=== PATIENT | female | born 1980 | race Caucasian/White ===

== ENCOUNTER 2022-12-27 13:43 | Outpatient (CLI) | payer OTHER, SELFPAY ==
--- NOTE | 2022-12-27 14:00 | CRLHL7_ITS ---
For Patients: As a result of the Century Cures Act, medical imaging exams and procedure reports are released immediately into your electronic medical record. You may view this report before your referring provider. If you have questions, please contact your health care provider. INDICATION: Trauma. Fall. Right buttock hematoma reportedly. TECHNIQUE: Directed soft tissue ultrasound of the upper right buttock without a radiologist present. FINDINGS: There is a fairly well-circumscribed slightly lobulated hypoechoic nonvascular mass in the upper right buttock measuring 8.9 x 2.1 x 4.9 cm. This appears to reflect a complex fluid collection and given the history provided, this should reflect a hematoma/seroma in the proper clinical setting. This is likely within the subcutaneous soft tissues as opposed to intra muscular in nature. IMPRESSION : Complex nonvascular oval-shaped fluid collection within the superficial soft tissues of the upper right buttock up measuring 8.9 x 2.1 x 4.9 cm likely a hematoma. Dictated by Giancarlo Melton MD @ 12/27/2022 6:04:53 PM (Electronically Signed)
== END 2022-12-27 13:44 | disposition home or self-care (01) ==
LOC: US 13:44
PROVIDERS: Visit Provider Physician Assistant Medical
DX: T14.8XXA Other injury of unspecified body region, initial encounter (principal)
CPT/HCPCS: 76882

== ENCOUNTER 2023-08-04 11:34 | Outpatient (CLI) | payer OTHER, SELFPAY | END 2023-08-04 11:35 | disposition home or self-care (01) | PROVIDERS: PCP Emergency Medicine; Visit Provider Family Medicine | DX: L65.9 Nonscarring hair loss, unspecified (principal); R53.83 Other fatigue | CPT/HCPCS: 80053; 84443 ==

== ENCOUNTER 2024-01-02 08:47 | Emergency (ER) | payer OTHER, SELFPAY ==
[2024-01-02 08:56] VITALS: BP 149/106; PULSE 124; RESP 18; TEMP 36.9; O2SAT 97; BMI 36.0
--- NOTE | 2024-01-02 09:12 | ED_ITS ---
HPI - Chest Pain General Date Seen: 01/02/24 Chief Complaint: Hypertension Stated Complaint: elevated blood pressure Time Seen by Provider: 01/02/24 09:04 History of Present Illness HPI narrative: 43-year-old female with a history of shingles, anxiety, insomnia, fatigue, presenting to the ER today for symptoms including headache, palpitations. She has a history of intermittent fevers for several months and has been following with Infectious Disease. Had a fever up to 104 last night. She checked her blood pressure today at work and it was apparently 180 systolic. Her resting heart rate is elevated up to 140. Normally is in the 70s. She has been running fevers for about a year or so. She has had a workup through her primary care and then has been referred to an Infectious Disease doctor at [facility]. She is says she has had multiple lab tests, echocardiogram, and other testing scans including a CT scan without any clear explanation for her fever. Her infectious disease team and [facility] wanted to refer her to [facility] for further evaluation. However her insurance block to that referral and would only allow her to get a 2nd opinion through [facility]. She recently saw a new infectious disease doctor, Dr. Heladio Tirado through [facility]. For the past few days she has been running fevers again. She had a temp up to 104 last night. She has been having headaches and body aches with the fevers which can happen and have been happening for the past year. Also she notes that for the past few days her resting heart rate has been high. Last night was up to 140 while she was in bed and normally it runs around 70. 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 Her heart rate was elevated. Her dentist checked her blood pressure and said that it was elevated at 180 systolic. Also her dentist said that there was a ?whoosh? in her heart so she sent her to the ER. She did have a sore throat a couple of nights ago. She has had ongoing headaches for the past couple of days. No confusion. No stiff neck. No other new symptoms. No cough. No vomiting. No diarrhea. No rash. No urinary symptoms. She is not currently on antibiotics. No known history of autoimmune disease. 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 (ICD-10) History of vitamin D deficiency ?Z86.39 - Personal history of other endocrine, nutritional and metabolic disease (ICD-10) Subclinical hyperthyroidism ?E05.90 - Thyrotoxicosis, unspecified without thyrotoxic crisis or storm (ICD-10) Hemorrhagic cyst of left ovary ?N83.202 - Unspecified ovarian cyst, left side (ICD-10) Surgical History (Updated 08/04/23 @ 11:29 by Norma Moreno MD) Hx of section ?Z98.891 - History of uterine scar from previous surgery (ICD-10) Hx of hysterectomy ?Z90.710 - Acquired absence of both cervix and uterus (ICD-10) Hx of appendectomy ?Z90.49 - Acquired absence of other specified parts of digestive tract (ICD- 10) Family History Heart failure Maternal Grandmother Alzheimers disease Mother Maternal Grandmother Hyperlipidemia Father Paternal Grandmother Myocardial infarction Maternal Grandfather High blood pressure Father Paternal Grandmother Colonic polyp Father Social History Narrative: Patient works at a dental office. Smoking Status: Never smoker Little interest or pleasure in doing things: not at all Feeling down, depressed, or hopeless: not at all Exam Narrative Exam Narrative: Constitutional: Appears well-developed and well-nourished. Alert. Conversant. Non toxic. HENT: Head: Atraumatic. Nose: Nose normal. Mastoids and pinna normal. TMs normal Mouth/Throat: Oral mucosa is clear and moist. no trismus. Pharynx mildly erythema. Tonsils symmetric. No tonsillar enlargement, erythema, or exudate. Uvula midline. Phonation normal Eyes: Conjunctivae normal. EOM normal. Pupils equal, round, and reactive to light. No scleral icterus. Neck: Normal range of motion. Neck supple. No tracheal deviation present. Cardiovascular: Tachycardic, 110, regular rhythm. No gallop. No friction rub. Possible splitting of S2 verses very soft systolic murmur heard. Symmetric radial artery pulses Pulmonary/Chest: Effort normal. No stridor. No respiratory distress. No wheezes. No rales. No rhonchi . No tenderness. Abdominal: Soft. Bowel sounds normal. No distension. No mass. No tenderness. No HSM. No rebound. No guarding. Musculoskeletal: RUE: Normal range of motion. No tenderness. No deformity LUE: Normal range of motion. No tenderness. No deformity RLE: Normal range of motion. No edema. No tenderness. No deformity LLE: Normal range of motion. No edema. No tenderness. No deformity Lymph: No cervical adenopathy. Neurological: Alert and oriented to person, place, and time. Normal strength. CN II-VII intact. No sensory deficit. GCS eye subscore is 4. GCS verbal subscore is 5. GCS motor subscore is 6. Normal coordination Skin: Skin is warm and dry. No rash noted. No pallor. Normal capillary refill. Psychiatric: Normal mood. Normal affect. Const Vital Signs, click to edit/add: Vital Signs - 24 hr 01/02/24 08:56 Temperature 98.4 F Pulse Rate [Pulse Oximeter] 124 H Respiratory Rate 18 Blood Pressure [Right Upper Arm] 149/106 H Pulse Oximetry 97 Oxygen Delivery Method Room Air Course Vital Signs Vital signs: Initial Vital Signs Respiratory Effort Normal 01/02/24 08:52 Respiratory Depth Normal 01/02/24 08:52 Respiratory Pattern Normal 01/02/24 08:52 Vital Signs Temperature 98.4 F 01/02/24 08:56 Pulse Rate 124 H 01/02/24 08:56 Respiratory Rate 18 01/02/24 08:56 Blood Pressure 149/106 H 01/02/24 08:56 Pulse Oximetry 97 01/02/24 08:56 Oxygen Delivery Method Room Air 01/02/24 08:56 Temperature 98.4 F 01/02/24 08:56 Pulse Rate 124 H 01/02/24 08:56 Respiratory Rate 18 01/02/24 08:56 Blood Pressure 149/106 H 01/02/24 08:56 Pulse Oximetry 97 03/05/24 08:56 Oxygen Delivery Method Room Air 01/02/24 08:56 Medications Administered Medications: Discontinued Medications Generic Name Dose Route Start Last Admin Trade Name Angelica PRN Reason Stop Dose Admin Ibuprofen 600 mg 01/02/24 11:30 01/02/24 11:29 Ibuprofen 200 Mg Tablet PO 01/02/24 11:31 600 mg ONCE ONE Administration MDM - Chest Pain MDM Narrative Medical decision making narrative: Child presents for evaluation of fever as well as elevated heart rate and elevated blood pressure. She has had trouble with intermittent fevers off and on for the past year and is part way through the process of a complex infectious disease workup determine the cause for her chronic fever. In that setting though she seems to have a new illness with an elevated resting heart rate and fevers that began this weekend. Differential is broad. Clinically I suspect that this probably a new illness superimposed post above her chronic problem. No classic rash to suggest viral syndrome. No evidence for OM on exam. She did have a sore throat a couple of days ago. Strep and mono are negative. No signs of exudate of pharyngitis or [employer] or RPA at this time. Differential for fever included cellulitis, septic arthritis, osteomyelitis but these are not seen on exam. She has had a previous echo that did not show any sign of endocarditis. On my exam she does have a possible heart murmur or possibly just a split S2. Recommend she follow-up with her new infectious disease team through [facility] and consider TTE. I made an effort to get through to the [facility] infectious disease doctor through the [facility] transfer line. Unfortunately they were not able to return my consult request today. Lungs are clear , so doubt pneumonia. She does have URI symptoms and headache and body aches with her fever. She is positive for influenza A based on nasal PCR. Negative for COVID and RSV. Based on time since onset of her new illness, currently on day 4, she is unlikely to benefit from Tamiflu. Discussed Tamiflu with the patient and she agrees to hold off for now. Abdominal exam is benign, appendicitis/colitis/ intra-abdominal source for fever is unlikely. The patient is smiling, alert, sitting up, and non-toxic, so I do not think sepsis or meningitis is present. Her infectious disease doctors have been considering possible lumbar puncture as part of workup for her chronic fever. At this point would hold off on LP in the ER today given low risk for acute bacterial meningitis. Plan of care includes supportive care with antipyretics, fluids, and watchful waiting at home. Instructions to return for recheck in 3-4 days if not improved, or immediately if worsening fever, decreasing oral intake, dehydration, worsening headaches or any other concerns. Incidentally she had elevated blood pressure readings at her work this morning. At this point there is no sign of any acute end-organ damage based on her EKG and laboratory workup. Suspect that the elevated blood pressure likely reflects pain and discomfort from her headache and underlying illness. Lab Data Labs: Lab Results 01/02/24 01/02/24 Range/Units 09:45 09:50 WBC 5.65 (4.50-11.00) K/uL RBC 4.07 (4.00-5.20) m/uL Hgb 13.0 (12.0-16.0) gm/dL Hct 39.1 (33.0-51.0) % MCV 96 (80-100) fL MCH 32 (26-34) pg MCHC 33 (32-36) gm/dL RDW Coeff of Luc 14.2 (11.5-15.5) % Plt Count 252 (140-440) K/uL Neut % (Auto) 81.4 H (42.0-72.0) % Lymph % (Auto) 6.7 L (20-44) % Clinton % (Auto) 11.5 H (0.0-11.0) % Eos % (Auto) 0.0 (0.0-7.0) % Baso % (Auto) 0.2 (0.0-3.0) % Neut # (Auto) 4.60 (1.7-7.0) K/uL Lymph # (Auto) 0.40 L (0.90-2.90) K/uL Clinton # (Auto) 0.60 (0.00-0.90) K/UL Eos # (Auto) 0.00 (0.00-0.50) K/uL Baso # (Auto) 0.01 (0.00-0.30) K/uL Abs Immat Gran (auto) 0.01 (0.00-0.30) K/uL Imm/Tot Granulo (auto) 0.2 % Sodium 140 (135-149) mmol/L Potassium 3.5 L (3.6-5.1) mmol/L Chloride 107 (96-114) mmol/L Carbon Dioxide 23 (20-32) mmol/L Anion Gap 10 (7-15) mEq/L BUN 6 (5-24) mg/dL Creatinine 0.8 (0.5-1.5) mg/dL Estimated Creat Clear 73.19 Estimated GFR 95 ml/min Glucose 99 (60-115) mg/dL Calcium 9.3 (8.4-10.6) mg/dL Total Bilirubin 0.4 (0.1-1.5) mg/dL AST 20 (12-35) U/L ALT 15 (4-35) U/L Alkaline Phosphatase 68 (40-150) U/L C-Reactive Protein 2.0 H (0.5-1.0) mg/dL Total Protein 7.4 (6.0-8.3) g/dL Albumin 4.4 (3.3-5.0) g/dL Urine Color Yellow (Yellow) Urine Appearance Clear (Clear) Urine pH 6.0 (5.0-8.5) Ur Specific Whitman <= 1.005 (1.000-1.030) Urine Protein Negative (Negative) Urine Glucose (UA) Negative (Negative) Urine Ketones Negative (Negative) Urine Blood Negative (Negative) Urine Nitrite Negative (Negative) Urine Bilirubin Negative (Negative) Urine Urobilinogen 0.2 (0.2-1.0) Ur Leukocyte Esterase Negative (Negative) Urine RBC 0-2 (0-2) Urine WBC 0-2 (0-5) Ur Squamous Epith Cells Few (None-Few) Urine Bacteria None (None) Urine HCG, Qual Negative (Negative) SARS-CoV-2 (PCR) Negative SARS-CoV-2 (Negative) Monoscreen Negative (Negative) Influenza Type A (PCR) POSITIVE PCR FLU A A (Negative) Influenza Type B (PCR) Negative PCR FLU B (Negative) RSV (PCR) Negative PCR RSV (Negative) Group A Strep DNA NOT DETECTED (Not Detectd) ECG Data Attestation: I personally reviewed and interpreted this ECG as follows: Interpretation: Sinus tachycardia. Rate 111 W[place] 162 QRS axis normal axis. No pathologic Q-waves. ST segment/T wave: No ST segment elevation or depression. QTc: 489 No old EKG available for comparison. Discharge Plan Discharge Clinical Impression: Influenza A Patient Disposition: Home, Self-Care Condition: Stable Instructions: Influenza (ED) Additional Instructions: As we discussed, we think that your fever and headache and elevated heart rate are related to influenza. Please monitor your symptoms carefully. Come back to the ER or see your infectious disease doctor right away if you are getting worse. Try to drink plenty of fluids and stay hydrated. Stay home from work an d rest until you have been afebrile for at least 24 hours. Use Tylenol or ibuprofen if needed help keep fever down. If you have worsening cough, shortness of breath, uncontrolled vomiting or dehydration, please come back to the ER right away. Please follow-up with your infectious disease team through [facility] to recheck for your ongoing fever workup. Activity Level: No Restrictions Discharge Diet: Regular Prescriptions: No Action No Known Home Medications Follow Up/Referrals: Tianna Prince MD [Primary Care Provider] - Stand Alone Forms: S.N. Safe[employer]Software Info Instructions
[2024-01-02 09:54] LABS: Appearance Urine Clear (Clear); Bilirubin Urine Negative (Negative); Blood Urine Negative (Negative); Color Urine Yellow (Yellow); Glucose Urine Negative (Negative); Ketones Urine Negative (Negative); Leukocyte Esterase Urine Negative (Negative); Nitrite Urine Negative (Negative); Protein Urine Negative (Negative); Specific Gravity Urine <= 1.005 (1.000-1.030); Urobilinogen Urine 0.2 (0.2-1.0)
[2024-01-02 09:55] LABS: Ur HCG Qualitative* Negative (Negative)
[2024-01-02 10:03] LABS: Basophils Absolute Auto 0.01 K/uL (0.00-0.30); Basophils Percent Auto 0.2 % (0.0-3.0); Hematocrit 39.1 % (33.0-51.0); Immature Granulocytes Abs Auto 0.01 K/uL (0.00-0.30); Immature Granulocytes Pct Auto 0.2 %; Lymphocytes Percent Auto 6.7 % (20-44); Mean Corpuscular HGB Conc 33 gm/dL (32-36); Mean Corpuscular Hemoglobin 32 pg (26-34); Mean Corpuscular Volume 96 fL (80-100); Monocytes Percent Auto 11.5 % (0.0-11.0); Neutrophils Percent Auto 81.4 % (42.0-72.0); Platelet Count* 252 K/uL (140-440); RDW Coefficient of Variation % 14.2 % (11.5-15.5); Red Blood Count 4.07 m/uL (4.00-5.20); White Blood Count* 5.65 K/uL (4.50-11.00)
[2024-01-02 10:05] LABS: RBC Urine 0-2 (0-2); Squamous Epithelial Cell Urine Few (None-Few); WBC Urine 0-2 (0-5)
[2024-01-02 10:06] LABS: Slide Review Reflex No
[2024-01-02 10:17] LABS: Chloride* 107 mmol/L (96-114); Mono Screen* Negative (Negative)
[2024-01-02 10:18] LABS: Albumin* 4.4 g/dL (3.3-5.0); Sodium* 140 mmol/L (135-149)
[2024-01-02 10:19] LABS: Potassium* 3.5 mmol/L (3.6-5.1)
[2024-01-02 10:21] LABS: Alanine Aminotransferase* 15 U/L (4-35); Alkaline Phosphatase* 68 U/L (40-150); Anion Gap 10 mEq/L (7-15); Aspartate Amino Transferase* 20 U/L (12-35); Bilirubin Total* 0.4 mg/dL (0.1-1.5); Blood Urea Nitrogen* 6 mg/dL (5-24); Carbon Dioxide* 23 mmol/L (20-32); Creatinine* 0.8 mg/dL (0.5-1.5); Est. Creatinine Clearance* 73.19; Estimated Glomerular Filt Rate 95 ml/min; Total Protein* 7.4 g/dL (6.0-8.3)
[2024-01-02 10:22] LABS: Calcium* 9.3 mg/dL (8.4-10.6); Glucose* 99 mg/dL (60-115)
[2024-01-02 10:51] LABS: Strep A DNA Probe* NOT DETECTED (Not Detectd)
[2024-01-02 11:03] LABS: PCR FLU A POSITIVE PCR FLU A (Negative); PCR FLU B Negative PCR FLU B (Negative); PCR RSV Negative PCR RSV (Negative); SARS PCR* Negative SARS-CoV-2 (Negative)
[2024-01-02] MEDS: IBUPROFEN 200 MG TABLET 600 MG PO (11:29)
== END 2024-01-02 11:54 | disposition home or self-care (01) ==
PROVIDERS: Emergency Provider Emergency Medicine; PCP Emergency Medicine
DX: J09.X2 Influenza due to identified novel influenza A virus with other respiratory manifestations (principal)
CPT/HCPCS: 36415; 80053; 81001; 81025; 85025; 86140; 86308; 87631; 87651; 99283; A9270